=== PATIENT | female | born 1940 | race Caucasian/White ===

== ENCOUNTER 2017-06-30 23:56 | Emergency (ER) | payer OTHER ==
[~2017-06-30] VITALS: Ht 170.2 cm; Wt 68.0 kg
--- NOTE | ~2017-06-30 | EKG ---
[place] [address] [facility] [place] [address] ELECTROCARDIOGRAM REPORT Name: WESTON BRAND Room #: DEP [facility]#: [id number] Admission: 06/30/17 Attend Phys: Discharge: 07/01/17 Date of : 40 Report #: [id number] THIS REPORT FOR: //name// [facility] ED Test Date: 2017-07-01 Test Time: 00:28:40 Pat Name: WESTON BRAND Department: Room: Gender: F Reservations Specialist: THOMAS : 1940 Requested By: Ana Quiñones Order Number: [id number] MD: Rizwan Montero Measurements Intervals [place] Rate: 70 P: 86 CT: 232 QRS: 42 QRSD: 106 T: 52 QT: 422 QTc: 456 Interpretive Statements Sinus rhythm Prolonged CT interval Poor R wave progression Compared to ECG 12/21/2016 13:57:30 Sinus rhythm has replaced atrial flutter Electronically Signed On 07-01-2017 12:13:10 CDT by Rizwan Montero [email or web address] <ELECTRONICALLY SIGNED> By: Rizwan Montero MD, [facility] 07/01/17 1213 Rizwan Montero MD, [facility] /EPI
[~2017-06-30 23:56] MED LIST: ADVAIR; ADVAIR 250-501 EACH INH; ADVAIR HFA 230M12 GM INH; ALLEGRA ALLERG180 MG PO; AMOXICILLIN875 MG PO; BAYER CHEWABLE81 MG PO; CALCIUM 600 +1 EA11 PO; CARDIZEM120 MG PO; CENTRUM SILVER1 EAC2 PO; CENTRUM SILVER1 EAC4 PO; FISH OIL 1,0001 EAC5 PO; FLECAINIDE ACET50 M1 PO; FLOVENT HFA 4444 MCG INH; KEFLEX500 MG PO; LIPITOR 10 MG10 M1 PO; LISINOPRIL10 MG PO; LISINOPRIL20 MG PO; MEDROLDOSEPACK PO; MULTIVITAMINS1 EAC7 PO; NASACORT10.8 ML NASAL; OMEPRAZOLE40 MG PO; PROAIR HFA8.5 GM INH; PROBIOTIC1 EAC2 PO; SINGULAIR 10 MG10 M1 PO; TYLENOL PM; TYLENOL325 MG PO; XARELTO15 MG PO
[2017-07-01 00:29] LABS: HEMATOCRIT 37.3 % (37.0-47.0); HEMOGLOBIN 12.9 gm/dL (12.0-15.0); MCH 32.2 pg (26.0-34.0); MCHC 34.7 g/dL (28.0-37.0); MCV 92.8 fL (80.0-100.0); PLATELET COUNT 268 thou/uL (150-400); RBC 4.01 mil/uL (4.20-5.00); RDW 13.3 % (10.5-14.5); WBC 10.9 thou/uL (4.0-11.0)
[2017-07-01 00:37] LABS: ANION GAP 13 mmol/L (7-16); BUN 38 mg/dL (7-18); CHLORIDE 92 mmol/L (98-107); CO2 22 mmol/L (21-32); CREATININE 1.7 mg/dL (0.6-1.0); GLUCOSE 110 mg/dL (74-106); POTASSIUM 4.4 mmol/L (3.5-5.1); SODIUM 127 mmol/L (136-145)
[2017-07-01 00:46] LABS: TROPONIN-I < 0.04 ng/mL (<0.06)
[2017-07-01 01:31] LABS: ABSOLUTE NEUTROPHILS 8.5 thou/uL (1.4-8.2)
== END 2017-07-01 03:51 | disposition home or self-care (01) ==
LOC: ER 23:56
PROVIDERS: Emergency Medicine
DX: R07.89 Other chest pain (principal); R51 Headache; I10 Essential (primary) hypertension; E87.1 Hypo-osmolality and hyponatremia; J45.909 Unspecified asthma, uncomplicated; I48.91 Unspecified atrial fibrillation; Z88.1 Allergy status to other antibiotic agents

== ENCOUNTER 2018-10-11 04:39 | Emergency (ER) | payer OTHER ==
[~2018-10-11] VITALS: Ht 170.2 cm; Wt 70.3 kg
[2018-10-11 04:57] LABS: HEMATOCRIT 36.8 % (37.0-47.0); HEMOGLOBIN 12.5 gm/dL (12.0-15.0); MCH 32.7 pg (26.0-34.0); MCHC 33.9 g/dL (28.0-37.0); MCV 96.4 fL (80.0-100.0); PLATELET COUNT 245 thou/uL (150-400); RBC 3.81 mil/uL (4.20-5.00); RDW 13.6 % (10.5-14.5); WBC 6.6 thou/uL (4.0-11.0)
[2018-10-11 05:03] LABS: ANION GAP 9 mmol/L (7-16); BUN 24 mg/dL (7-18); CALCIUM 9.2 mg/dL (8.5-10.1); CHLORIDE 101 mmol/L (98-107); CO2 26 mmol/L (21-32); CREATININE 1.1 mg/dL (0.6-1.0); GLUCOSE 96 mg/dL (74-106); POTASSIUM 4.3 mmol/L (3.5-5.1); SODIUM 136 mmol/L (136-145)
[2018-10-11 05:26] LABS: ALBUMIN 3.8 g/dL (3.4-5.0); MAGNESIUM 2.1 mg/dL (1.8-2.4); SGOT 24 U/L (15-37); SGPT 37 U/L (30-65); TOTAL BILIRUBIN 0.1 mg/dL (<0.1-1.0); TOTAL PROTEIN 7.4 g/dL (6.4-8.2); TROPONIN-I <0.06 ng/mL (<0.06)
[2018-10-11 05:57] VITALS: BP 169/76
[2018-10-11 06:22] LABS: ABSOLUTE NEUTROPHILS 3.2 thou/uL (1.4-8.2); PLATELET ESTIMATE NORMAL
--- NOTE | 2018-10-11 08:16 | EKG ---
[place] [address] [facility] [employer] [place] [address] ELECTROCARDIOGRAM REPORT Name: WESTON BRAND Room #: DEP [facility]#: [id number] ������������������ Admission: 10/11/18 ������������������ Attend Phys: Discharge: 10/11/18 ������������������ Date of : 40 Report #: [id number] ����������������������������������������������������������������� [id number] THIS REPORT FOR: //name// [facility] ED Test Date: 2018-10-11 Test Time: 04:47:08 Pat Name: WESTON BRAND Department: Room: Gender: F Recruitment Specialist: CHUCHO : 1940 Requested By: Memo Arteaga Order Number: [id number] MD: Rizwan Montero Measurements Intervals [place] Rate: 83 P: 83 [place]: 244 QRS: 47 QRSD: 100 T: 47 QT: 388 QTc: 456 Interpretive Statements Sinus rhythm Prolonged [place] interval RSR' in V1 or V2, right VCD Compared to ECG 07/01/2017 00:28:40 No significant change was found Electronically Signed On 10-11-2018 8:16:23 CDT by Rizwan Montero [email or web address] ��������������������������������������������� <ELECTRONICALLY SIGNED> ���������������������������������������� By: Rizwan Montero MD, [facility] ��������������������������������������������� 10/11/1816 [phone] Rizwan Montero MD, [facility] /EPI
== END 2018-10-11 05:57 | disposition home or self-care (01) ==
LOC: ER 04:39
PROVIDERS: Emergency Medicine
DX: R00.2 Palpitations (principal); I10 Essential (primary) hypertension; I48.91 Unspecified atrial fibrillation; J45.909 Unspecified asthma, uncomplicated; Z88.1 Allergy status to other antibiotic agents

== ENCOUNTER → 2018-10-18 | Outpatient (CLI) | payer OTHER | LOC: RAD 14:58 | DX: M47.816 Spondylosis without myelopathy or radiculopathy, lumbar region (principal); M41.86 Other forms of scoliosis, lumbar region; M48.07 Spinal stenosis, lumbosacral region; M11.261 Other chondrocalcinosis, right knee; M25.761 Osteophyte, right knee; Z88.1 Allergy status to other antibiotic agents ==

== ENCOUNTER → 2019-04-14 | Outpatient (CLI) | payer OTHER | LOC: SJCVC 11:23 | DX: I44.0 Atrioventricular block, first degree (principal); E78.5 Hyperlipidemia, unspecified; I48.0 Paroxysmal atrial fibrillation; I10 Essential (primary) hypertension; J45.41 Moderate persistent asthma with (acute) exacerbation; Z79.01 Long term (current) use of anticoagulants ==

== ENCOUNTER → 2019-09-17 | Outpatient (CLI) | payer OTHER | LOC: NUC 08-26 07:58 | PROVIDERS: ATTEND Family Medicine | DX: Z13.820 Encounter for screening for osteoporosis (principal); M85.88 Other specified disorders of bone density and structure, other site ==

== ENCOUNTER → 2019-10-15 | Outpatient (CLI) | payer OTHER ==
[~2019-10-15] MED LIST changes: +COZAAR 25 MG TA25 M1 PO; +NEXIUM20 MG PO
== END ==
LOC: SJCVC 11:04
PROVIDERS: ATTEND Internal Medicine
DX: I44.0 Atrioventricular block, first degree (principal); I48.0 Paroxysmal atrial fibrillation; I10 Essential (primary) hypertension; E78.5 Hyperlipidemia, unspecified; J45.41 Moderate persistent asthma with (acute) exacerbation; Z79.01 Long term (current) use of anticoagulants

== ENCOUNTER 2019-10-17 03:32 | Emergency (ER) | payer OTHER ==
[~2019-10-17] VITALS: Ht 170.2 cm; Wt 71.7 kg
[~2019-10-17 03:32] MED LIST changes: -COZAAR 25 MG TA25 M1 PO; -NEXIUM20 MG PO
[2019-10-17 03:39] VITALS: BP 158/111
[2019-10-17] MEDS ORDERED: COZAAR 25 MG TA25 M1 PO (03:47)
[2019-10-17] MEDS ORDERED: ALLEGRA ALLERG180 MG PO (03:47)
[2019-10-17] MEDS ORDERED: NEXIUM20 MG PO (03:48)
== END 2019-10-17 04:08 | disposition home or self-care (01) ==
LOC: ER 03:32
DX: I10 Essential (primary) hypertension (principal); I48.91 Unspecified atrial fibrillation; J45.909 Unspecified asthma, uncomplicated; Z88.1 Allergy status to other antibiotic agents; Z79.899 Other long term (current) drug therapy

== ENCOUNTER → 2020-04-21 | Outpatient (CLI) | payer OTHER ==
[~2020-04-21] MED LIST changes: +COZAAR 25 MG TA25 M1 PO; +NEXIUM20 MG PO
== END ==
LOC: SJCVC 10:43
PROVIDERS: ATTEND Internal Medicine
DX: R94.31 Abnormal electrocardiogram [ECG] [EKG] (principal); I44.0 Atrioventricular block, first degree; I48.0 Paroxysmal atrial fibrillation; I10 Essential (primary) hypertension; E78.5 Hyperlipidemia, unspecified; J45.41 Moderate persistent asthma with (acute) exacerbation; K21.9 Gastro-esophageal reflux disease without esophagitis; E78.00 Pure hypercholesterolemia, unspecified; E78.2 Mixed hyperlipidemia; Z79.01 Long term (current) use of anticoagulants; Z88.1 Allergy status to other antibiotic agents; Z87.891 Personal history of nicotine dependence; Z72.89 Other problems related to lifestyle; Z79.899 Other long term (current) drug therapy

== ENCOUNTER → 2020-10-18 | Outpatient (CLI) | payer OTHER ==
[~2020-10-18] MED LIST changes: +CENTRUM SILVER1 EAC5 PO; -FLECAINIDE ACET50 M1 PO; +GABAPENTIN100 MG PO; +TAMBOCOR 100 M100 MG PO; +TRAMADOL 50 MG50 MG PO; +TYLENOL PO; +VITAMIN D PO
== END ==
LOC: MRI 10-14 08:22
PROVIDERS: ATTEND Family Medicine
DX: M51.16 Intervertebral disc disorders with radiculopathy, lumbar region (principal); M48.061 Spinal stenosis, lumbar region without neurogenic claudication; M47.26 Other spondylosis with radiculopathy, lumbar region; M51.17 Intervertebral disc disorders with radiculopathy, lumbosacral region; M48.07 Spinal stenosis, lumbosacral region; M25.78 Osteophyte, vertebrae; M46.06 Spinal enthesopathy, lumbar region

== ENCOUNTER → 2020-10-20 | Outpatient (CLI) | payer OTHER ==
[~2020-10-20] VITALS: Ht 17.8 cm; Wt 70.3 kg
[2020-10-20 09:23] VITALS: BP 151/74
--- NOTE | 2020-10-20 09:52 | NUR ---
Pain Clinic Assessment: 1. History of Osteoarthritis: LUMBAR SPINE History of Rheumatoid Arthritis: DENIES 2. Height: 5 ft. 7 in. 17.8 cm. Weight: 155.0 lb. oz. 70.308 kg. Patient's BMI: 2219.0 3. Vital Signs: BP: 151/74 Pulse: 66 Resp: 14 Temp: 02 Sat: 97 ECG Mon: 4. Pain Intensity: 4 TO 8 5. Fall Risk: Dizziness: N Needs help standing or walking: N Fallen in the last 3 months: Y Fall risk comments: 6. Patient on Blood Thinner: XARELTO 7. History of Hypertension: Y 8. Opioid Therapy greater than 6 weeks: N Opiate Contract Signed: 9. Risk Assessment Tool Provided: LOW-1 10. Functional Assessment Tool: 11. Recreational Drug Use: Never Drug Type: Tobacco Use: Former Smoker Tobacco Type: Amount or Packs/day: How Many Years: Alcohol Use: Yes Frequency: Weekly Quant: 5
== END ==
LOC: PAIN 06:57
PROVIDERS: ATTEND Anesthesiology Pain Medicine
DX: M79.604 Pain in right leg (principal); I10 Essential (primary) hypertension; Z79.891 Long term (current) use of opiate analgesic; Z79.899 Other long term (current) drug therapy; Z87.891 Personal history of nicotine dependence; Z88.1 Allergy status to other antibiotic agents; Z88.8 Allergy status to other drugs, medicaments and biological substances

== ENCOUNTER → 2020-10-25 | Outpatient (CLI) | payer OTHER | LOC: SJCVC 14:13 | PROVIDERS: ATTEND Internal Medicine | DX: I48.0 Paroxysmal atrial fibrillation (principal); I10 Essential (primary) hypertension; E78.5 Hyperlipidemia, unspecified; J45.41 Moderate persistent asthma with (acute) exacerbation; Z79.01 Long term (current) use of anticoagulants; Z79.899 Other long term (current) drug therapy; Z87.891 Personal history of nicotine dependence; Z72.89 Other problems related to lifestyle; Z88.8 Allergy status to other drugs, medicaments and biological substances ==

== ENCOUNTER → 2021-05-02 | Outpatient (CLI) | payer OTHER ==
[~2021-05-02] MED LIST changes: +NEURONTIN300 MG PO
== END ==
LOC: SJCVC 13:00
PROVIDERS: ATTEND Internal Medicine
DX: R94.31 Abnormal electrocardiogram [ECG] [EKG] (principal); I48.0 Paroxysmal atrial fibrillation; I10 Essential (primary) hypertension; E78.5 Hyperlipidemia, unspecified; J45.41 Moderate persistent asthma with (acute) exacerbation; Z79.01 Long term (current) use of anticoagulants; Z88.1 Allergy status to other antibiotic agents; Z88.8 Allergy status to other drugs, medicaments and biological substances; Z87.891 Personal history of nicotine dependence; Z72.89 Other problems related to lifestyle; Z79.899 Other long term (current) drug therapy